=== PATIENT | male | born 1995 | race Hispanic/Latino ===

== ENCOUNTER 2019-04-11 15:48 | Emergency (ER) | payer OTHER ==
[2019-04-11] MEDS ORDERED: KETOROLAC TROMETHAMINE 60 MG/2 ML VIAL ONE (16:16)
[2019-04-11] MEDS ORDERED: ACETAMINOPHEN 325 MG TAB ONE (16:16)
[2019-04-11 16:46] LABS: RAPID GROUP A STREP NEGATIVE (NEGATIVE)
[2019-04-11] MEDS ORDERED: ONDANSETRON ODT 4 MG TAB ONE (16:59)
== END 2019-04-11 18:09 | disposition home or self-care (01) ==
LOC: EDH 15:48
DX: B34.9 Viral infection, unspecified (principal); R50.81 Fever presenting with conditions classified elsewhere
CPT/HCPCS: 87804 ×2; 87880; 96372; 99284; J1885